=== PATIENT | female | born 1985 | race Caucasian/White ===

== ENCOUNTER 2022-04-21 15:07 | Emergency (ER) | payer BC ==
[2022-04-21 15:59] LABS: Absolute Lymphocytes (CBC) 1.7 K/uL (0.7-4.9); Hematocrit 34.6 % (36.0-45.0); Lymphocytes % 19.8 % (15.3-44.8); MCV 88.5 fL (80-100); MPV 7.3 fL (7.6-11.3); RBC Red Blood Cell Count 3.91 M/uL (3.86-4.86)
[2022-04-21 16:17] LABS: Urine Blood 3+ (Negative); Urine Glucose Trace (Negative); Urine Protein 2+ (Negative); Urine Specific Gravity >=1.030 (1.005-1.030)
[2022-04-21 16:19] LABS: Potassium 3.5 mmol/L (3.5-5.1)
--- NOTE | 2022-04-21 17:53 | EDPHYS ---
Physician Documentation [facility] Name: Kolby Salguero Age: 36 yrs Sex: Female : 1985 Arrival Date: 04/21/2022 Time: 15:09 Bed 12 Private MD: ED Physician Oliverio Barreto HPI: 04/21 15:39 This 36 yrs old Female presents to ER via Ambulatory with complaints of Vaginal pm1 Bleeding, + Preg <12wks. 15:39 The patient presents to the emergency department with vaginal bleeding, that is light, pm1 reports using 1 pads or tampons per day. course: care: none, Ultrasound: the patient has not had an ultrasound. Associated signs and symptoms: Pertinent negatives: abdominal pain, dysuria, fever. The patient has experienced a previous episode, Miscarriage 2 years ago at 5 weeks . The patient has not recently seen a physician. Patient with positive UPT 1 week ago. CLINICAL TECHNICIAN: 15:36 2, Full Term 0, Premature 0, 1, Living 0 iw 15:39 2, Full Term 0, 1, Living 0 pm1 Historical: - Allergies: 15:35 No Known Allergies; iw - Home Meds: 15:35 None [Active]; iw - PMHx: 15:35 None; iw - PSHx: 15:35 None; iw - Immunization history:: Client reports receiving the 2nd dose of the Covid vaccine. - Social history:: Smoking status: Patient denies any tobacco usage or history of. ROS: 15:39 Constitutional: Negative for fever, chills, and weight loss, Cardiovascular: Negative pm1 for chest pain, palpitations, and edema, Respiratory: Negative for shortness of breath, cough, wheezing, and pleuritic chest pain. 15:39 MS/Extremity: Negative for injury and deformity, Skin: Negative for injury, rash, and discoloration, Neuro: Negative for headache, weakness, numbness, tingling, and seizure. 15:39 : Positive for vaginal bleeding, Negative for urinary symptoms. 15:39 All other systems are negative. Exam: 15:39 Constitutional: This is a well developed, well nourished patient who is awake, alert, pm1 and in no acute distress. Head/Face: Normocephalic, atraumatic. 15:39 Back: No spinal tenderness. No costovertebral tenderness. Full range of motion. Skin: Warm, dry with normal turgor. Normal color with no rashes, no lesions, and no evidence of cellulitis. MS/ Extremity: Pulses equal, no cyanosis. Neurovascular intact. Full, normal range of motion. 15:39 Cardiovascular: Exam negative for acute changes, Rate: normal, Rhythm: regular, Pulses: no pulse deficits are appreciated. 15:39 Respiratory: Exam negative for acute changes, respiratory distress, shortness of breath. 15:39 Abdomen/GI: Inspection: abdomen appears normal, Palpation: abdomen is soft and non-tender, in all quadrants. 15:39 Neuro: Exam negative for acute changes, Orientation: is normal, Mentation: is normal, Motor: moves all fours. Vital Signs: 15:34 BP 113 / 81; Pulse 89; Resp 16; Temp 97.5; Pulse Ox 100% on R/A; Weight 62.6 kg; iw 17:31 BP 116 / 86; Pulse 81; Resp 16; Pulse Ox 100% on R/A; ld1 MDM: 16:00 Patient medically screened. pm1 17:06 ED course: Patient with beta-hCG of 49 and no pain present. Light bleeding maximum 1 pm1 pad. Likely very early . Ultrasound would be of no benefit at the moment. Advised patient she would need to follow-up with OB for repeat beta hCG and further evaluation. 17:51 Data reviewed: vital signs. Data interpreted: Pulse oximetry: on room air is 100 %. pm1 Interpretation: normal. 17:51 Counseling: I had a detailed discussion with the patient and/or guardian regarding: the pm1 historical points, exam findings, and any diagnostic results supporting the discharge/admit diagnosis, lab results, the need for outpatient follow up, to return to the emergency department if symptoms worsen or persist or if there are any questions or concerns that arise at home. 04/21 15:39 Order name: Abo/rh Typing; Complete Time: 17:01 04/21 15:39 Order name: Basic Metabolic Panel; Complete Time: 16:24 04/21 15:39 Order name: CBC with Diff; Complete Time: 16:24 04/21 15:39 Order name: Quantitative Hcg; Complete Time: 16:24 04/21 16:17 Order name: Urine --Ancillary (enter results); Complete Time: 17:01 eb 04/21 16:17 Order name: Urine Dipstick-Ancillary; Complete Time: 16:24 EDMS 04/21 15:39 Order name: IV Saline Lock; Complete Time: 16:11 iw 04/21 15:39 Order name: Labs collected and sent; Complete Time: 16:11 iw 04/21 15:39 Order name: NPO; Complete Time: 16:11 iw 04/21 15:39 Order name: Urine Dipstick-Ancillary (obtain specimen); Complete Time: 16:17 iw 04/21 15:39 Order name: Urine Test (obtain specimen); Complete Time: 16:17 iw Administered Medications: No medications were administered Disposition: 04/22 15:50 Attestation: The patient's history, exam findings, diagnostics, and a summary of any [facility] interventions or procedures was reviewed in detail with Reilly Ruiz NP. Disposition Summary: 04/21/22 17:52 Discharge Ordered Location: Home pm1 Problem: new pm1 Symptoms: have improved pm1 Condition: Stable pm1 Diagnosis - Threatened pm1 Followup: pm1 - With: Emergency Department - When: As needed - Reason: Worsening of condition Followup: pm1 - With: Private Physician - When: 2 - 3 days - Reason: Recheck today's complaints, Continuance of care, Re-evaluation by your physician Discharge Instructions: - Discharge Summary Sheet pm1 - Threatened Miscarriage pm1 - Activity Restriction During pm1 Forms: - Medication Reconciliation Form pm1 - Thank You Letter pm1 - Antibiotic Education pm1 - Prescription Opioid Use pm1 Signatures: Dispatcher [employer] Arianna Finn RN RN iw Reilly Ruiz NP FISH DRESSING MACHINE FEEDER pm1 Oliverio Barreto MD MD [id number] Corrections: (The following items were deleted from the chart) 04/21 16:35 16:24 Transvaginal Ob+US.RAD.BRZ ordered. EDMS EDMS
--- NOTE | 2022-04-21 17:53 | ER ---
Nurse's Notes [facility] Name: Kolby Salguero Age: 36 yrs Sex: Female : 1985 Arrival Date: 04/21/2022 Time: 15:09 Bed 12 Private MD: Diagnosis: Threatened Presentation: 04/21 15:34 Chief complaint: Patient states: i am five weeks and I started bleeding today iw , has had previous miscarriage. Coronavirus screen: At this time, the client does not indicate any symptoms associated with coronavirus-19. Ebola Screen: Patient negative for fever greater than or equal to 101.5 degrees Fahrenheit, and additional compatible Ebola Virus Disease symptoms Patient denies exposure to infectious person. Patient denies travel to an Ebola-affected area in the 21 days before illness onset. No symptoms or risks identified at this time. Initial Sepsis Screen: Does the patient meet any 2 criteria? No. Patient's initial sepsis screen is negative. Does the patient have a suspected source of infection? No. Patient's initial sepsis screen is negative. Risk Assessment: Do you want to hurt yourself or someone else? Patient reports no desire to harm self or others. Onset of symptoms was April 21, 2022. 15:34 Method Of Arrival: Ambulatory iw 15:34 Acuity: RAH 3 iw SAGGER SOAK: 15:36 2, Full Term 0, Premature 0, 1, Living 0 iw 15:39 2, Full Term 0, 1, Living 0 pm1 Historical: - Allergies: 15:35 No Known Allergies; iw - Home Meds: 15:35 None [Active]; iw - PMHx: 15:35 None; iw - PSHx: 15:35 None; iw - Immunization history:: Client reports receiving the 2nd dose of the Covid vaccine. - Social history:: Smoking status: Patient denies any tobacco usage or history of. Screenin:17 Abuse screen: Denies threats or abuse. Denies injuries from another. Nutritional ld1 screening: No deficits noted. Tuberculosis screening: No symptoms or risk factors identified. Fall Risk None identified. Assessment: 16:17 General: Appears in no apparent distress. comfortable, Behavior is calm, cooperative, ld1 appropriate for age. Pain: Denies pain. Neuro: Level of Consciousness is awake, alert, obeys commands, Oriented to person, place, time, situation. Cardiovascular: Capillary refill < 3 seconds Patient's skin is warm and dry. Rhythm is regular. Respiratory: Airway is patent Respiratory effort is even, unlabored. GI: Abdomen is flat, non-distended. : No signs and/or symptoms were reported regarding the genitourinary system. : Reports vaginal bleeding that is bright red. EENT: No signs and/or symptoms were reported regarding the EENT system. Derm: No signs and/or symptoms reported regarding the dermatologic system. Musculoskeletal: No signs and/or symptoms reported regarding the musculoskeletal system. Vital Signs: 15:34 BP 113 / 81; Pulse 89; Resp 16; Temp 97.5; Pulse Ox 100% on R/A; Weight 62.6 kg; iw 17:31 BP 116 / 86; Pulse 81; Resp 16; Pulse Ox 100% on R/A; ld1 ED Course: 15:09 Patient arrived in ED. mr 15:18 Reilly Ruiz NP is PHCP. pm1 15:18 Oliverio Barreto MD is Attending Physician. pm1 15:35 Triage completed. iw 15:36 Arm band placed on. iw 16:11 Yudelka Recinos, JUANITA is Primary Nurse. ld1 16:17 Patient has correct armband on for positive identification. Placed in gown. Bed in low ld1 position. Call light in reach. Side rails up X2. Pulse ox on. NIBP on. Door closed. Noise minimized. 16:17 No provider procedures requiring assistance completed. ld1 18:14 IV discontinued, intact, bleeding controlled, No redness/swelling at site. ld1 Administered Medications: No medications were administered Medication: 16:17 VIS not applicable for this client. ld1 Outcome: 17:52 Discharge ordered by . pm1 18:14 Discharged to home ambulatory. ld1 18:14 Condition: stable 18:14 Discharge instructions given to patient, Instructed on discharge instructions, follow up and referral plans. follow up with OB doctor. Demonstrated understanding of instructions, follow-up care. 18:15 Patient left the ED. ld1 Signatures: GilmanVania vazquez Arianna Sidhu RN RN iw Reilly Ruiz NP CHIEF MAINTENANCE SUPERVISOR pm1 Yudelka Recinos, JUANITA RN ld1
[2022-04-21 18:23] VITALS: TEMP 97.5; O2SAT 100
[2022-04-21 18:25] VITALS: BP 116/86
== END 2022-04-21 18:15 | disposition home or self-care (01) ==
LOC: ER 15:07
DX: O20.0 Threatened abortion (principal)
CPT/HCPCS: 36415; 80048; 81003; 81025; 84702; 85025; 86900; 86901; 99283